=== PATIENT | female | born 1945 | race Caucasian/White ===

== ENCOUNTER 2016-12-10 10:39 | Emergency (ER) | payer MEDICARE, OTHER ==
[~2016-12-10] VITALS: Ht 172.7 cm; Wt 68.2 kg
[2016-12-10 10:47] VITALS: BP 170/86; PULSE 90; RESP 16; O2SAT 98
--- NOTE | 2016-12-10 10:58 | ED.REPORT ---
HPI-Trauma Minor / Fall Date of Service Dec 10, 2016 ED Provider: The patient is a 71 year old female with history of hypertension, who presents to the emergency department complaining of head pain. The patient had a ground level fall last night. She states she was brushing her teeth and the next thing she remembers is waking up on the ground. She hit her head and was bleeding from her right ear. Since the fall she has experienced continued bleeding from right ear, left ear pain, head pain, nausea, and vomiting. She has also felt like she was "drunk." She denies neck pain, back pain, extremity pain, abdominal pain or chest pain. She has not injured her head or lost consciousness in the past. She felt normal prior to the fall. Nursing Notes Stated Complaint: GLF, HEAD INJURY Chief Complaint: Multiple Trauma/Fall Nursing Notes Reviewed: Yes Allergies: Coded Allergies: Sulfa (Sulfonamide Antibiotics) (Verified Allergy, Severe, Anaphylaxis, 12/10/16) Scheduled PRN Ondansetron (Zofran) 4 Mg Tablet 4 MG PO Q4H PRN PRN For Nausea General Time Seen by MD: 10:58 Chief Complaint Fall, Head injury Hx Obtained From: Patient, Spouse Arrived By: Walk-in Onset Occurred: Yesterday Symptom Duration: Since onset Caused by: Fall down stairs Context: Occurred at: Home injury Location: Ear right Head Quality: Painful Severity: Current: Mild Severity: Maximum: Moderate Recent Healthcare: No recent doctor visit, No recent hospitalization Similar Sx Previous: No Past Medical History Past Medical History Hypertension Breast cancer Past Surgical History Bilateral oophorectomy Family History Noncontributory Smoking History Unknown if Ever Smoker Social History Other Social History: Good social support, , Local resident Ambulatory Status Independent Review of Systems Review of Systems Note: +feels "drunk" Ears / Nose / Throat: Reports: Ear drainage right, Earache left Musculoskeletal: Denies: Back pain, Extremity pain, Neck pain Neurologic: Reports: Change LOC, Headache, Syncope Complete sys rev & neg: except as marked. Cardiovascular: Denies: Chest pain GI: Reports: Nausea, Vomiting, Denies: Abdominal pain Physical Exam Initial Vital Signs Vital Signs (First) Date Time Temp Pulse Resp B/P Pulse Ox O2 Delivery O2 Flow Rate FiO2 12/10/16 10:47 37.0 90 16 170/86 98 Room Air Initial VS: Reviewed Extremities: Vascular intact, Neuro intact, No swelling, No tenderness Skin: Warm, Dry, No cyanosis Psychiatric: Mood/affect normal, Behavior normal, Normal thought content General/Constitutional: Awake, Alert, Cooperative Neck: No swelling Tenderness along C2 and C3. No obvious deformity. Head / Eyes: PERRL, EOMI Hematoma over the left occiput. Tenderness along the occipital insertion. ENT: Airway patent, Mucous membranes moist, Pharynx NL Right Ear / Mastoid: Positive: Discharge bloody Decreased hearing on the right side. Respiratory / Chest: Atraumatic, Breath sounds NL, Breath sounds = bilat, No respiratory distress, No rales, No rhonchi, No wheezing, No chest tenderness, No chest wall deformity, No crepitus Cardiovascular: Heart rate NL, Regular rhythm, Heart sounds NL, No murmurs, No rubs, Cap refill not delayed, Peripheral circulation NL Abdomen: Atraumatic, Soft, Non-tender, No guarding, No rebound, BS normoactive , No distention, No hernia, No palpable mass, No pulsatile mass Back: Atraumatic, Inspection NL, Full range of motion, Non-tender, No midline vertebral tend Upper Extremity / MS: No deformity, Neurologic intact, Vascular intact Wrist / Hand: No deformity, Neurologic intact, Vascular intact Lower Extremity / Pelvis / MS: No deformity, Neurologic intact, Vascular intact Ankle / Foot: No deformity, Neurologic intact, Vascular intact Neurologic: Oriented X3, Speech NL, No motor deficits, No sensory deficits, Cerebellar NL, Memory NL Interpretation & Diagnostics Lab Results Interpretation Result Diagram: 12/10/16 1105 12/10/16 1105 Test 12/10/16 11:05 White Blood Count 7.3th/mm3 (3.8-10.1) Red Blood Count 4.30mil/mm3 (3.90-5.20) Hemoglobin 13.3g/dL (12.0-15.6) Hematocrit 40.3% (35.0-46.0) Mean Corpuscular Volume 93.7fL (81-100) Mean Corpuscular Hemoglobin 30.9pg (27.0-35.0) Mean Corpuscular Hemoglobin Concent 33.0% (32.0-37.0) Red Cell Distribution Width 13.0% (12.3-15.4) Platelet Count 194bil/L (150-400) Neutrophils (%) (Auto) 76.9% (40-74) Lymphocytes (%) (Auto) 15.1% (14-46) Monocytes (%) (Auto) 7.3% (4-12) Eosinophils (%) (Auto) 0.5% (0-5) Basophils (%) (Auto) 0.1% (0-3) Sodium Level 141mEq/L (134-144) Potassium Level 3.8mEq/L (3.5-5.2) Chloride Level 98mEq/L (97-108) Carbon Dioxide Level 25mmol/L (18-29) Blood Urea Nitrogen 13mg/dL (8-27) Creatinine 0.76mg/dL (0.57-1.00) Estimat Glomerular Filtration Rate 108mL/min (>59) Glucose Level 110mg/dL (60-99) Calcium Level 9.6mg/dL (8.5-10.1) Magnesium Level 2.2mg/dL (1.6-2.6) Total Bilirubin 0.7mg/dL (0.0-1.2) Aspartate Amino Transf (AST/SGOT) 21U/L (0-50) Alanine Aminotransferase (ALT/SGPT) 14U/L (0-32) Alkaline Phosphatase 66U/L (25-165) Troponin T 0.010ug/L (0.0-0.011) Total Protein 7.4g/dL (6.4-8.4) Albumin 4.9g/dL (3.4-5.0) ECG Interpretation ECG Interpretation: Sinus rhythm with a rate of 90 Left atrial enlargement Left axis deviation Time: 11:00 Interpreted by: ED physician X-Ray Chest Interpretation Chest Xray Interpretation: IMPRESSION: No acute process. Dictated by: Randolph Chavis M.D. on 12/10/2016 at 11:41 Interpretation / Wet Read by: Interpret - Radiologist CT Head Interpretation IMPRESSION: 1. Probable left temporal lobe contusion. 2. Fluid in the right mastoid air cells and right middle ear suspicious for occult right temporal bone fracture. 3. Paranasal sinus mucosal thickening as described above. 4. Findings telephone to Dr. Lucretia Arellano on 12/10/2016 Dictated by: Mag Sebastian MD, PhD on 12/10/2016 at 11:36 Study: Head CT no contrast Interpretation / Wet Read by: Interpret - Radiologist, Discussed w radiologist CT C-Spine Interpretation IMPRESSION: No fracture. No acute osseous lesion. If symptoms and/or clinical suspicion for pathology persists, evaluation with MRI may be helpful for further assessment. Dictated by: Mag Sebastian MD, PhD on 12/10/2016 at 11:50 Study type: CT no contrast Interpretation / Wet Read by: Interpret - Radiologist, Discussed w radiologist Re-Eval/Medical Decision Source of Hx: Old records, Family Re-Evaluation/Progress : Time of Eval: 12:28 Re-Evaluation/Progress Note: Rechecked the patient. Discussed results, diagnosis, and plan for discharge. All questions were addressed. Counseled Regarding: Diagnosis, Lab results, Need for follow-up, When/why to return to ED Discharge & Departure Impression: Primary Impression: Syncope Syncope type: unspecified Qualified Code: R55 - Syncope and collapse Additional Impressions: Fall Encounter type: initial encounter Qualified Code: W19.XXXA - Unspecified fall, initial encounter Concussion Encounter type: initial encounter Loss of consciousness presence/duration: with LOC of 30 min or less Qualified Code: S06.0X1A - Concussion with loss of consciousness of 30 minutes or less, initial encounter Basilar skull fracture Encounter type: initial encounter Fracture type: closed Qualified Code: S02.10XA - Unspecified fracture of base of skull, initial encounter for closed fracture Contusion of left temporal lobe Encounter type: initial encounter Loss of consciousness presence/duration: with LOC of 30 min or less Qualified Code: S06.2X1A - Diffuse traumatic brain injury with loss of consciousness of 30 minutes or less, initial encounter Ruled Out: STEMI (ST elevation myocardial infarction), Pulmonary embolism, Metastatic disease, Subdural hemorrhage, Cervical spine fracture Disposition: Home Discharge Condition All VS Reviewed: Yes Condition: Stable Patient Instructions: Minor Head Injury (ED), Skull Fracture (ED) Additional Instructions: Thank you for entrusting us with your care today. We diagnosed you with having a basilar skull fracture, scalp hematoma, and left temporal lobe contusion after your recent fall. You are being sent home with a prescription for Zofran, an anti-nausea medication -- take as needed. We encourage when showering, to allow the water to flow into your ear and over your scalp to help remove residual dried blood. If your headache worsens, you continue to vomit despite medication, or your overall demeanor changes significantly past baseline, please do not hesitate to return to the Emergency Department or contact your primary care physician (PCP) for continued care. We recommend you make an appt. with your PCP within the next week to follow-up on your condition. Referrals: Gracie Zamudio MD (PCP) Scribe Attestation Portions of this note were transcribed by Sharon Leal. I, Dr. Arellano personally performed the history, physical exam and medical decision-making; I reviewed and confirmed the accuracy of the information in the transcribed note. Signed by: Floyd Matias, 12/10/2016 at 1300. copies to: Gracie Zamudio MD, Shawna L MD Dec 10, 2016 10:58 Sharon Leal Dec 10, 2016 11:06
[2016-12-10] MEDS ORDERED: HYDROmorphone 0.5 mg/0.5 mL iSecure Syringe IVPUSH PRN (11:15)
[2016-12-10] MEDS ORDERED: Ondansetron 2 mg/mL 2 mL Inj IVPUSH PRN (11:15)
[2016-12-10 11:18] LABS: BASOPHILS % (AUTO) 0.1 % (0-3); EOSINOPHILS % (AUTO) 0.5 % (0-5); MONOCYTES % (AUTO) 7.3 % (4-12); Mean Corpuscular Hemoglobin 30.9 pg (27.0-35.0); Mean Corpuscular Volume 93.7 fL (81-100); NEUTROPHILS % (AUTO) 76.9 % (40-74); Platelet Count 194 bil/L (150-400)
--- NOTE | 2016-12-10 11:43 | DRSVH ---
PROCEDURE: X-RAY CHEST ONE VIEW, PORTABLE ([id number]) INDICATIONS: syncope TECHNIQUE: One view of the chest was acquired. COMPARISON: [facility], , CHEST 2VW, 01/23/2013, 10:12. FINDINGS: Surgical changes and devices: None. Lungs and pleura: No pleural effusions or pneumothorax. Lungs are clear. Mediastinum: Mediastinal contours appear normal. Heart size is normal. Bones and chest wall: No suspicious bony lesions. Overlying soft tissues appear unremarkable. IMPRESSION: No acute process. Dictated by: Randolph Chavis M.D. on 12/10/2016 at 11:41 Approved by: Randolph Chavis M.D. on 12/10/2016 at 11:41
[2016-12-10 11:48] LABS: TROPONIN T 0.01 ug/L (0.0-0.011)
--- NOTE | 2016-12-10 11:51 | DRSVH ---
PROCEDURE: CT BRAIN WITHOUT CONTRAST ([id number]) INDICATIONS: syncope, bleeding from Right ear TECHNIQUE: Noncontrast 4.5 mm thick angled axial sections acquired from the foramen magnum to the vertex, with c oronal reformats. COMPARISON: None. FINDINGS: Image quality: Excellent. CSF spaces: Basal cisterns are patent. No extra-axial fluid collections. The ventricles are symmet dsuty in size and shape. Brain: Hypodense lesion in the periphery of the mid aspect of the left temporal lobe which given hist ory of fall suspicious for subacute parenchymal contusion. There is cerebral volume loss for age, wit h resultant ventricular and sulcal prominence. There are periventricular and deep white matter chron ic small vessel ischemic changes. There is intracranial internal carotid artery atherosclerosis. Skull and face: Calvarium and visualized facial bones appear intact, without suspicious lesions. Rig ht parietal scalp hematoma is noted. Sinuses: Mucosal thickening noted in the maxillary sinuses bilaterally, scattered ethmoid air cells b ilaterally and in the left sphenoid sinus. Air-fluid levels noted in the aditus on antrum of the righ t temporal bone and in the right middle ear suspicious for occult temporal bone fracture. IMPRESSION: 1. Probable left temporal lobe contusion. 2. Fluid in the right mastoid air cells and right middle ear suspicious for occult right temporal bon e fracture. 3. Paranasal sinus mucosal thickening as described above. 4. Findings telephone to Dr. Lucretia Arellano on 12/10/2016 Dictated by: Mag Sebastian MD, PhD on 12/10/2016 at 11:36 Approved by: Mag Sebastian MD, PhD on 12/10/2016 at 11:49
--- NOTE | 2016-12-10 11:57 | DRSVH ---
PROCEDURE: CT CERVICAL SPINE WITHOUT CONTRAST ([id number]) INDICATIONS: syncope, bleeding from Right ear TECHNIQUE: Noncontrast 3 mm thick sections acquired from the skull base to the T4 level. Sagittal and coronal r eformats were then constructed. For radiation dose reduction, the following was used: automated exp osure control, adjustment of mA and/or kV according to patient size. COMPARISON: None. FINDINGS: Image quality: Excellent. Bones: No fractures or dislocations. Visualized superior ribs are intact. Multilevel degenerative d isc disease, facet hypertrophy and uncovertebral joint hypertrophy noted. Soft tissues: Prevertebral soft tissues are normal in thickness. No paravertebral hematomas. No ap ical pneumothoraces. IMPRESSION: No fracture. No acute osseous lesion. If symptoms and/or clinical suspicion for patholog y persists, evaluation with MRI may be helpful for further assessment. Dictated by: Mag Sebastian MD, PhD on 12/10/2016 at 11:50 Approved by: Mag Sebastian MD, PhD on 12/10/2016 at 11:55
[2016-12-10 11:59] LABS: Magnesium 2.2 mg/dL (1.6-2.6)
[2016-12-10] MEDS ORDERED: ONDA4TAB6 PO (12:43)
[2016-12-10 12:49] VITALS: BP 138/78; PULSE 79; RESP 18; O2SAT 97
--- NOTE | 2016-12-12 08:34 | PCM.EDPN ---
ED Note Date of Service Dec 12, 2016 0745 This is to document that I have just received a phone call from the patient's regarding this 71-year-old female suffered blunt head trauma 2 days ago seen in the emergency department, diagnosed with a probable left temporal lobe contusion, and basilar skull fracture and according to the is now having some worsening headaches. He wanted to know this is if this was normal, I have reviewed her chart, given the description of worsening headaches in this 71-year-old with what appears to be in a significant traumatic event-I have strongly recommended returning to the emergency department for a face to face re -evaluation. Denny Najera MD Dec 12, 2016 08:34
== END 2016-12-10 12:50 | disposition home or self-care (01) ==
LOC: SED 10:39
DX: R55 Syncope and collapse (principal); S06.2X1A Diffuse traumatic brain injury with loss of consciousness of 30 minutes or less, initial encounter; S02.101A Fracture of base of skull, right side, initial encounter for closed fracture; W18.30XA Fall on same level, unspecified, initial encounter; Y92.002 Bathroom of unspecified non-institutional (private) residence as the place of occurrence of the external cause; Y93.E8 Activity, other personal hygiene; Y99.8 Other external cause status; I10 Essential (primary) hypertension; Z88.2 Allergy status to sulfonamides
CPT/HCPCS: 36415; 70450; 71010; 72125; 80053; 83735; 84484; 85025; 93005; 96374; 96375; 99285; J1170; J2405